=== PATIENT | female | born 1945 | race Caucasian/White ===

== ENCOUNTER 2016-07-30 08:17 | Day surgery (SDC) | payer MEDICARE ==
[2016-07-30 08:53] VITALS: BMI 21.9
[2016-07-30] MEDS ORDERED: Lactated Ringer's 1,000 ML IV ONE (09:47)
[2016-07-30] MEDS: Gentamicin 160 MG in Sodium Chloride 0.9% 100 ML IVPB ONE ×3 (09:47→10:08)
[2016-07-30] MEDS ORDERED: Iohexol 240 (50 ml) ONE (09:53)
[2016-07-30] MEDS ORDERED: Ciprofloxacin 400mg/200ml D5W 200 ML IVPB ONE (09:53)
[2016-07-30] MEDS ORDERED: Propofol 10 mg/ml Inj (20 ML) ONE (09:54)
[2016-07-30] MEDS ORDERED: Lidocaine 2% Jelly (Uro-Jet) ONE (09:54)
--- NOTE | 2016-07-30 10:19 | PCM.SURG1 ---
Surgeon's Initial Post Op Note - Surgeon's Notes Surgeon: Brandon Nurses Educator: n/a Type of Anesthesia: General LMA Anesthesia Administered By: staff Pre-Operative Diagnosis: Right renal calculi Operative Findings: same Post-Operative Diagnosis: R renal calculi Operation Performed: cysto insertion of jj stent R Specimen/Specimens Removed: n/a Estimated Blood Loss: EBL {In ML}: 0 Blood Products Given: N/A Drains Used: No Drains Post-Op Condition: Good Date of Surgery/Procedure: 07/30/16 Time of Surgery/Procedure: 10:18 (small stone noted on ct not seen on fluro)
--- NOTE | 2016-07-30 11:34 | RAD ---
HISTORY: RT. RENAL CALCULI COMPARISON: 04/19/2014. FINDINGS: BOWEL: Constipation without fecal impaction or obstruction. BONES: Normal. OTHER FINDINGS: Right renal calculus 12 x 15 mm unchanged compared to the prior study. Left renal calculus 5 mm unchanged compared to the prior study IMPRESSION: Stable bilateral renal calculi.
--- NOTE | 2016-07-30 11:52 | RAD ---
PROCEDURE: Fluoroscopy up to 1 hr. HISTORY: RT. RENAL CALCULI/COLIC COMPARISON: None TECHNIQUE: Standard protocol for this study/examination. FINDINGS: Submitted images from the current procedure: 3.0 IMPRESSION: Less than 1 hr fluoroscopic time utilized during performance of the procedure.
[2016-07-30] MEDS: Oxycodone/Acetaminophen 5/325 mg Tab PO STA ×2 (12:13→12:16)
--- NOTE | 2016-07-30 13:07 | OP ---
PROCEDURE DATE: 07/30/2016 PREOPERATIVE DIAGNOSIS: Right ureteropelvic junction calculi. POSTOPERATIVE DIAGNOSIS: Right ureteropelvic junction calculi. DESCRIPTION OF PROCEDURE: Prior to the procedure, a detailed informed consent was obtained from the patient, the patient was identified and a time-out was taken according to the rules and regulations [facility] The patient was draped and prepped in the usual manner in the lithotomy position and cystoscoped with a #21 Stortz panendoscope. The bladder was inspected thoroughly with both 30 an d 70 degree lenses. There were no urothelial tumors. The right ureteral orifice was cannulized with an open-ended ureteral catheter, which was passed up to the renal pelvis and with some minimal manip ulation, the guide wire was passed past the obstructing calculi, thereby pushing it back into the tan al pelvis. The open-ended catheter was backed out leaving the guide wire in place and a 6-Slovenian eleazar iable length stent was placed and positioned properly with a curl in both the renal pelvis and the bl adder. The patient tolerated this procedure well. She will need lithotripsy in the future. Amauri Taylor MD cc: [id number] TT: 07/30/2016 13:06:05 cn
[2016-07-31 16:01] VITALS: BP 148/71; PULSE 71; RESP 18; TEMP 97.5; O2SAT 98
== END 2016-07-30 12:55 | disposition home or self-care (01) ==
LOC: C.SDS 08:17
PROVIDERS: ATTEND Urology
DX: N20.1 Calculus of ureter (principal)
CPT/HCPCS: 52332; 74020; 76000; 82948; C1769; C2617; J0744; J1580; J7120

== ENCOUNTER 2016-09-03 07:46 | Day surgery (SDC) | payer MEDICARE, MEDICAID ==
[2016-09-03] MEDS ORDERED: Gentamicin 160 MG in Sodium Chloride 0.9% 100 ML IVPB ONE (07:59)
[2016-09-03 09:17] VITALS: O2SAT 100
[2016-09-03] MEDS ORDERED: Propofol 10 mg/ml Inj (20 ML) ONE (10:36)
[2016-09-03] MEDS ORDERED: Iohexol 240 (50 ml) ONE (10:38)
[2016-09-03] MEDS ORDERED: Lidocaine 2% Jelly (Uro-Jet) ONE (10:38)
[2016-09-03] MEDS ORDERED: Ciprofloxacin 400mg/200ml D5W 400 MG/200 ML BAG IVPB ONE (10:38)
--- NOTE | 2016-09-03 11:42 | PCM.SURG1 ---
Surgeon's Initial Post Op Note - Surgeon's Notes Surgeon: Brandon Exchange Engineer: alaina Type of Anesthesia: General Endo, General LMA Anesthesia Administered By: staff Pre-Operative Diagnosis: Right ureteal calculi Operative Findings: same Post-Operative Diagnosis: ureteral calculi Operation Performed: Ureteroscopy/laser lithotripsy/stent Specimen/Specimens Removed: na Estimated Blood Loss: EBL {In ML}: 0 Blood Products Given: N/A Drains Used: No Drains Post-Op Condition: Good Date of Surgery/Procedure: 09/03/16 Time of Surgery/Procedure: 11:46
[2016-09-03] MEDS ORDERED: HYDROmorphone 0.5 mg/0.5 ml ISec IVP PRN (11:52)
[2016-09-03] MEDS ORDERED: Lactated Ringer's 1,000 ML IV SCH (12:00)
[2016-09-03] MEDS ORDERED: HYDROmorphone 1 mg/ml ISec ONE (12:38)
--- NOTE | 2016-09-03 12:42 | OP ---
PROCEDURE DATE: 09/03/2016 PREOPERATIVE DIAGNOSIS: Multiple right ureteral calculi. POSTOPERATIVE DIAGNOSIS: Multiple right ureteral calculi. PROCEDURE: Cystoscopy, removal of stent, ureteroscopy, laser lithotripsy and insertion of double-J s tent with string. PROCEDURE: The patient was asked to sign a detailed informed consent prior to the procedure. She is aware of the risks and complications of the procedure and that other procedures may be necessary. T he patient was identified, brought into the room and draped and prepped in the usual manner. A timeo ut was taken according the rules and regulations of [facility] and the patient was then cystosco ped with a #21 Storz panendoscope. The tip of the stent was grasped and pulled out through the ureth ra. A guidewire was passed through the stent and up into the renal pelvis and the stent was backed o ut. The cystoscope was then removed and the ureteroscope was inserted. A second guidewire was passe d into the right ureteral orifice and the scope was used to hydro-dilate the ureter. The scope was p assed up the ureter until multiple stones were seen. The guidewire was removed and the laser element was inserted and the stones were fragmented. Once they were fragmented, the guidewire was reinserte d and the scope was passed up to the renal pelvis. There was another stone. This was fragmented in the same manner. The guidewire was then left in place and the scope was backed out and a 6-Indian do uble-J stent with a string on was positioned properly with the distal end in the renal pelvis and the proximal end in the bladder. The patient tolerated the procedure well. The stent will be removed i n my office. The patient was given prescription for Cipro and Percocet and detailed postoperative in structions. Amauri Taylor MD cc: [phone] TT: 09/03/2016 12:41:34 tn
[2016-09-03 13:37] VITALS: RESP 11; TEMP 97.6
[2016-09-03 17:11] VITALS: PULSE 73
[2016-09-03 17:12] VITALS: BP 123/67
--- NOTE | 2016-09-03 17:15 | RAD ---
PROCEDURE: HISTORY: RT. URETER CALCULI COMPARISON: 08/21/2016 TECHNIQUE: Multiple fluoroscopic spot images obtained FINDINGS: Right ureteral guidewire in right ureteral stent present on image number 3 on image 4 a few faint calcifications project at the mid lumbar vertebral body levels probably L4 level. This is similar to 08/21/2016 image 5 shows a right ureteral stent removed right ureteral cannula in place with right ureteral apparent calcifications right lateral to the L3 level. Fewer of these calcifications are noted on image 6. . Image 7 shows the persistence with a right ureteral guidewire now in place. Image 8 shows the distal right ureteral stent core all projecting over the bladder image 9 shows a proximal core all over the right renal pelvis an prior proximal right ureteral calculi projecting over the proximal right ureteral stent. Lumbosacral transitional elements are suggested. IMPRESSION: Right ureteral stent/ guide wire comes ureteral stones in changes as noted above. Correlation with procedure performed.
--- NOTE | 2016-09-03 17:15 | RAD ---
HISTORY: RT. URETER CALCULI COMPARISON: 08/21/2016 FINDINGS: BOWEL: No obstruction. No free air. The most cephalad prior right sided calculi projecting over the coiling proximal ureteral stent likely now have migrated to the proximal right ureteral stent the right ureteral calculus seen here before the small L1 along the inferior aspect is still present and unchanged in its position. The left lower renal pole calculi are similar in appearance BONES: Lumbosacral level transitional elements suggested OTHER FINDINGS: None. IMPRESSION: Right ureteral stent with interval change in the position of the prior right sided ureteral calculi -as detailed above. A left lower renal pole calculi are unchanged
== END 2016-09-03 14:20 | disposition home or self-care (01) ==
LOC: C.SDS 07:46
PROVIDERS: ATTEND Urology
DX: N20.1 Calculus of ureter (principal)
CPT/HCPCS: 52356; 74000; 82948; 88300; C1769; C2617; J0744; J1170; J1580